=== PATIENT | male | born 1970 | race American Indian/Alaskan Native ===

== ENCOUNTER 2017-08-01 11:46 | Emergency (ER) | payer BC, OTHER ==
--- NOTE | 2017-08-01 12:08 | EDM.PDOC ---
ED HPI GENERAL MEDICAL PROBLEM - General Chief Complaint: Neck Problem Stated Complaint: [id number] FELL ON WEDNESDAY OFF LADDER Time Seen by Provider: 08/01/17 12:03 Source of Information: Reports: Patient History Limitations: Reports: No Limitations - History of Present Illness INITIAL COMMENTS - FREE TEXT/NARRATIVE: 47 yo male c/o Left side neck muscle pain and left shoulder muscle tightness after fall off ladder wednesday pm ( 2 days ago). Pt. denies LOC and request soft neck collar Onset Date: 07/30/17 Onset Time: 16:00 Duration: Day(s): Location: Reports: Neck, Upper Extremity, Left Quality: Reports: Ache Severity: Mild Improves with: Reports: Rest Worsens with: Reports: Movement Context: Reports: Trauma Associated Symptoms: Reports: No Other Symptoms - Related Data Allergies Allergy/AdvReac Type Severity Reaction Status Date / Time No Known Allergies Allergy Verified 10/13/13 17:38 Home Meds: Home Meds Gabapentin [Gabapentin] 300 mg PO QID 10/13/13 [History] Omeprazole 20 mg PO DAILY 10/13/13 [History] Zolpidem [Ambien] 10 mg PO BEDTIME 10/13/13 [History] oxyCODONE [oxyCODONE] 5 mg PO QID 10/13/13 [History] Lisinopril [Zestril] 40 mg PO DAILY 08/01/17 [History] Metoprolol Tartrate 50 mg PO DAILY 08/01/17 [History] Past Medical History HEENT History: Reports: Impaired Vision Cardiovascular History: Reports: High Cholesterol, Hypertension Gastrointestinal History: Reports: GERD Musculoskeletal History: Reports: Back Pain, Chronic Endocrine/Metabolic History: Reports: Diabetes, Type II - Infectious Disease History Infectious Disease History: Reports: Chicken Pox - Past Surgical History GI Surgical History: Reports: Hernia Repair/Other Social & Family History - Tobacco Use Second Hand Smoke Exposure: No - Alcohol Use Days Per Week of Alcohol Use: 0 - Recreational Drug Use Recreational Drug Use: No ED ROS GENERAL - Review of Systems Review Of Systems: See Below Constitutional: Reports: No Symptoms HEENT: Reports: No Symptoms Respiratory: Reports: No Symptoms Cardiovascular: Reports: No Symptoms Endocrine: Reports: No Symptoms GI/Abdominal: Reports: No Symptoms : Reports: No Symptoms Musculoskeletal: Reports: Neck Pain (left lateral side), Shoulder Pain (left ) Skin: Reports: Wound (right forehead) Neurological: Reports: No Symptoms Psychiatric: Reports: No Symptoms Hematologic/Lymphatic: Reports: No Symptoms Immunologic: Reports: No Symptoms ED EXAM, GENERAL - Physical Exam Exam: See Below Exam Limited By: No Limitations General Appearance: Alert, WD/WN, No Apparent Distress Eye Exam: Bilateral Eye: EOMI, PERRL Ears: Normal External Exam Ear Exam: Bilateral Ear: TM normal Nose: Normal Inspection, Normal Mucosa Throat/Mouth: Normal Inspection Head: Other (right forehead skin abrasion) Neck: Normal Inspection, Supple, Full Range of Motion, Tender Lateral (left) Respiratory/Chest: No Respiratory Distress, Lungs Clear Cardiovascular: Normal Peripheral Pulses, Regular Rate, Rhythm, No Edema Peripheral Pulses: 2+: Radial (L), Radial (R) Back Exam: Normal Inspection, Full Range of Motion Extremities: Normal Inspection, Normal Range of Motion, Other (muscle tightness to left shoulder and left side neck w/ movement) Neurological: Alert, Oriented, CN II-XII Intact, Normal Cognition Psychiatric: Normal Affect, Normal Mood Skin Exam: Warm, Dry, Normal Color Lymphatic: No Adenopathy Departure - Departure Time of Disposition: 12:13 Disposition: Home, Self-Care 01 Condition: Good Clinical Impression: Contusion Qualifiers: Encounter type: initial encounter Contusion area: head Contusion of head detail : unspecified part of head Qualified Code(s): S00.93XA - Contusion of unspecified part of head, initial encounter - Discharge Information Instructions: Cervical Sprain, [id number], Cervical Collar Additional Instructions: Rest WEAR SOFT CERVICAL COLLAR FOR COMFORT Apply Moist Heat to areas of pain TID X 15 mins For Pain: MOTRIN 600mg TID w/ food Continue w/ your prescribed medication ( Neurontin and Oxycodone) F/U w/ PCP
== END 2017-08-01 12:20 | disposition home or self-care (01) ==
LOC: DL.ED 11:46
DX: S00.93XA Contusion of unspecified part of head, initial encounter (principal); S00.81XA Abrasion of other part of head, initial encounter; I10 Essential (primary) hypertension; E11.9 Type 2 diabetes mellitus without complications; Z79.899 Other long term (current) drug therapy; W11.XXXA Fall on and from ladder, initial encounter
CPT/HCPCS: 99283

== ENCOUNTER 2018-12-29 07:39 | Day surgery (SDC) | payer OTHER ==
[~2018-12-29 07:39] MED LIST: Dextrose 5%-0.45% NaCl 1,000 ML IV SCH; Midazolam 1 MG/ML 2 ML SDV ONE; Sodium Chloride 0.9% 10 ML Syringe FLUSH PRN; fentaNYL 100 MCG/2 ML SDV ONE
[2018-12-29] MEDS ORDERED: fentaNYL 100 MCG/2 ML SDV IV ONE ×3 (07:40→08:39)
[2018-12-29] MEDS ORDERED: Midazolam 1 MG/ML 2 ML SDV IV ONE ×3 (07:40→08:40)
--- NOTE | 2018-12-29 13:50 | OR ---
DATE: 12/29/2018 PROCEDURE PERFORMED: Esophagogastroduodenoscopy and multiple pinch biopsies. INSTRUMENT USED: [id number] Olympus video panendoscope. PREMEDICATIONS: No oral or topical anesthesia used. Fentanyl 100 mcg intravenous, Versed 2 mg intravenous. The procedure was done under pulse oximetry, BP recording, and bus driver/monitor. INDICATION: The patient with persistent longstanding heartburn, on long-term PPI and also has known chronic hepatitis C. Esophagogastroduodenoscopy is performed for detection of any active erosive lesions, Thorpe esophagus and/or malignancy also under consideration, H. pylori status to be determined, detection of any varices, endoscopic hemostasis therapy if needed. DESCRIPTION OF PROCEDURE: The scope was passed with ease. Adequate visualization of the esophagus was made from proximal to distal areas. No upper esophageal lesions identified. No distal esophageal stricture. No uphill or downhill esophageal varices. No Paola-Baugh tear. No evidence of erosive esophagitis by Dawson criteria. No esophageal polyp or tumor mass identified. Z-line was seen at around 40 cm distal to the oral verge, configuration consistent with grade 1 by ZAP classification. No proximal gastric varices noted. Gastric fundus examination by retroflexion showed no polypoid lesions. No gastric ulcer, malignant mass, or vascular ectasia identified. Duodenal bulb showed no ulcer. Visualized second part of the duodenum was unremarkable. Multiple pinch biopsies were taken from the gastric antrum and proximal body and sent for PyloriTek test for H. pylori, and if negative in an hour, tissue is to be sent for histopathology. No bleeding was noted from any of the visualized areas at the completion of examination. IMPRESSION: Normal study. The patient tolerated the procedure well. [facility] /[id number]
== END 2018-12-29 11:18 | disposition home or self-care (01) ==
LOC: DL.ENDO 07:39
PROVIDERS: ATTEND Internal Medicine Gastroenterology
DX: K21.9 Gastro-esophageal reflux disease without esophagitis (principal); B96.81 Helicobacter pylori [H. pylori] as the cause of diseases classified elsewhere; B18.2 Chronic viral hepatitis C; I10 Essential (primary) hypertension; F41.1 Generalized anxiety disorder; Z79.899 Other long term (current) drug therapy
CPT/HCPCS: 43239; J2250; J3010; J7042

== ENCOUNTER 2020-04-09 12:21 | Emergency (ER) | payer MEDICAID, OTHER ==
[2020-04-09] MEDS ORDERED: HYDROmorphone 1 MG/ML Syringe IVPUSH ONE (12:25)
[2020-04-09] MEDS ORDERED: Sodium Chloride 0.9% 1,000 ML IV ONE (12:26)
[2020-04-09] MEDS ORDERED: Ketorolac 30 MG/ML SDV IVPUSH ONE (12:26)
[2020-04-09] MEDS ORDERED: Sodium Chloride 0.9% 10 ML Syringe FLUSH PRN (12:26)
[2020-04-09] MEDS ORDERED: Ondansetron 4 MG/2 ML SDV IV ONE (12:26)
--- NOTE | 2020-04-09 12:30 | EDM.PDOC ---
ED HPI GENERAL MEDICAL PROBLEM - General Chief Complaint: Abdominal Pain Stated Complaint: SEVERE KIDNEY PAIN Time Seen by Provider: 04/09/20 12:28 Source of Information: Reports: Patient, Old Records, RN, RN Notes Reviewed History Limitations: Reports: No Limitations - History of Present Illness INITIAL COMMENTS - FREE TEXT/NARRATIVE: Pt arrives to ER by POV with c/o severe B/L flank, and low abdominal pain that began on 04/03/20. Initially the pain was of moderate intensity and was intermittent. Today the pain returned and quickly became severe. He states he noticed some strands of clotted blood in his urine a few time over the past few days, and passed a couple of chunks that he thought might be kidney stones. Currently he is experiencing urinary urgency and frequency with dark reddish- orange urine but only passing very small amounts with each attempted void. He has nausea and vomiting associated with the severe pain. Pt states he was just COVID tested yesterday and informed of negative result this morning. Onset: Sudden Onset Date: 04/03/20 Duration: Constant (today), Intermittent, Recurring Location: Reports: Abdomen, Back Quality: Reports: Ache Severity: Severe Improves with: Reports: None Worsens with: Reports: None Associated Symptoms: Reports: No Other Symptoms Bilateral Lower Abdomen Pain Score (Numeric/FACES): 10 - Related Data Allergies Allergy/AdvReac Type Severity Reaction Status Date / Time No Known Allergies Allergy Verified 04/09/20 12:47 Home Meds: Home Meds Gabapentin 300 mg PO TID 10/13/13 [History] Zolpidem [Ambien] 5 - 10 mg PO BEDTIME 10/13/13 [History] oxyCODONE 5 mg PO QID 10/13/13 [History] Metoprolol Tartrate 50 mg PO DAILY 08/01/17 [History] Lansoprazole [Prevacid] 30 mg PO DAILY 12/28/18 [History] Sildenafil [Revatio] 50 mg PO ASDIRECTED 12/28/18 [History] atorvaSTATin [Lipitor] 40 mg PO DAILY 12/28/18 [History] Multivitamin [Multi-Day Vitamins] 1 each PO DAILY 12/29/18 [History] Past Medical History HEENT History: Reports: Impaired Vision Cardiovascular History: Reports: High Cholesterol, Hypertension Respiratory History: Reports: None Gastrointestinal History: Reports: GERD Genitourinary History: Reports: None Musculoskeletal History: Reports: Back Pain, Chronic Neurological History: Reports: None Psychiatric History: Reports: None Endocrine/Metabolic History: Reports: Diabetes, Type II Hematologic History: Reports: None Immunologic History: Reports: None Oncologic (Cancer) History: Reports: None Dermatologic History: Reports: None - Infectious Disease History Infectious Disease History: Reports: Chicken Pox - Past Surgical History Head Surgeries/Procedures: Reports: None HEENT Surgical History: Reports: Adenoidectomy, Tonsillectomy Cardiovascular Surgical History: Reports: None GI Surgical History: Reports: Colonoscopy, EGD, Hernia Repair/Other Male Surgical History: Reports: Vasectomy Social & Family History - Family History Family Medical History: Noncontributory - Caffeine Use Caffeine Use: Reports: Coffee Caffeine Use Comment: 1 pot/day - Living Situation & Occupation Living situation: Reports: , with Spouse Occupation: Employed ED ROS GENERAL - Review of Systems Review Of Systems: Comprehensive ROS is negative, except as noted in HPI. ED EXAM, RENAL/ - Physical Exam Exam: See Below Exam Limited By: No Limitations General Appearance: Alert, WD/WN, Moderate Distress (due to pain) Eye Exam: Bilateral Eye: Normal Inspection Throat/Mouth: Normal Voice, No Airway Compromise Head: Atraumatic, Normocephalic Neck: Normal Inspection, Full Range of Motion Respiratory/Chest: No Respiratory Distress, Lungs Clear, Normal Breath Sounds, No Accessory Muscle Use, Chest Non-Tender Cardiovascular: Regular Rate, Rhythm, Tachycardia GI/Abdominal: Normal Bowel Sounds, Soft, Non-Tender, No Distention, Pelvis Stable. No: No Abnormal Bruit, Guarding, Rigid, Rebound (Male) Exam: Deferred Rectal (Males) Exam: Deferred Back Exam: Normal Inspection, Full Range of Motion. No: CVA Tenderness (L), CVA Tenderness (R) Extremities: Normal Inspection Neurological: Alert, Oriented, No Motor/Sensory Deficits Psychiatric: Normal Affect, Normal Mood Skin Exam: Warm, Dry, Intact, Normal Color, No Rash Course - Vital Signs Last Recorded V/S: Last Vital Signs Temp 97.8 F 04/09/20 12:40 Pulse 77 04/09/20 12:40 Resp 20 04/09/20 12:40 BP 129/67 04/09/20 12:40 Pulse Ox 100 04/09/20 12:40 - Orders/Labs/Meds Orders: Active Orders 24 hr Category Date Time Status Peripheral IV Care [RC] . DIRECTED Care 04/09/20 12:27 Active CULTURE URINE [RM] Stat Lab 04/09/20 12:30 Received Sodium Chloride 0.9% [Saline Flush] Med 04/09/20 12:26 Active 10 ml FLUSH ASDIRECTED PRN Peripheral IV Insertion Adult [OM.PC] Stat Oth 04/09/20 12:26 Ordered Medication Orders Sodium Chloride (Saline Flush) 10 ml FLUSH ASDIRECTED PRN PRN Reason: Keep Vein Open Last Admin: 04/09/20 12:38 Dose: 10 ml Documented by: NIDIA Labs: Laboratory Tests 04/09/20 04/09/20 04/09/20 Range/Units 12:30 13:06 13:06 WBC 16.0 H (5.0-10.0) 10^3/uL RBC 5.04 (4.6-6.2) 10^6/uL Hgb 15.7 (14.0-18.0) g/dL Hct 44.6 (40.0-54.0) % MCV 88.5 (80-100) fL MCH 31.2 (27.0-34.0) pg MCHC 35.2 H (33.0-35.0) g/dL Plt Count 159 (150-450) 10^3/uL Neut % (Auto) 81.1 H (42.2-75.2) % Lymph % (Auto) 7.2 L (20.5-50.1) % Slope % (Auto) 11.4 H (2-8) % Eos % (Auto) 0.1 L (1.0-3.0) % Baso % (Auto) 0.2 (0.0-1.0) % Sodium 138 (136-145) mmol/L Potassium 4.3 (3.5-5.1) mmol/L Chloride 101 (98-107) mmol/L Carbon Dioxide 29 (21-32) mmol/L Anion Gap 12.3 (7-13) mEq/L BUN 11 (7-18) mg/dL Creatinine 1.06 (0.70-1.30) mg/dL Est Cr Clr Drug Dosing 91.51 mL/min Estimated GFR (MDRD) > 60 BUN/Creatinine Ratio 10.4 (No establ ref range) Glucose 133 H (74-99) mg/dL Calcium 8.6 (8.5-10.1) mg/dL Total Bilirubin 1.2 H (0.2-1.0) mg/dL AST 8 L (15-37) U/L ALT 20 (16-63) U/L Alkaline Phosphatase 87 (46-116) U/L Total Protein 7.3 (6.4-8.2) g/dL Albumin 3.5 (3.4-5.0) g/dL Globulin 3.8 Albumin/Globulin Ratio 0.9 Amylase 27 (25-115) U/L Lipase 69 L (73-393) U/L Urine Color Dark yellow (YELLOW) Urine Appearance Turbid (CLEAR) Urine pH 6.5 (5.0-9.0) Ur Specific [place] 1.025 (1.005-1.030) Urine Protein >=300 H (NEGATIVE) Urine Glucose (UA) Negative (NEGATIVE) Urine Ketones Trace H (NEGATIVE) Urine Occult Blood Large H (NEGATIVE) Urine Nitrite Positive H (NEGATIVE) Urine Bilirubin Small H (NEGATIVE) Urine Urobilinogen 2.0 H (0.2-1.0) mg/dL Ur Leukocyte Esterase Large H (NEGATIVE) Urine RBC >100 H /HPF Urine WBC >100 H (0-5/HPF) /HPF Ur Epithelial Cells Few (NOT SEEN) /HPF Amorphous Sediment Many (NOT SEEN) /HPF Urine Bacteria Many H (0-FEW/HPF) /HPF Urine Mucus Many H (NOT SEEN) /LPF Meds: Medications Generic Name Dose Route Start Last Admin Trade Name Freq PRN Reason Stop Dose Admin Sodium Chloride 10 ml 04/09/20 12:26 04/09/20 12:38 Saline Flush FLUSH 10 ml ASDIRECTED PRN Administration Keep Vein Open Discontinued Medications Generic Name Dose Route Start Last Admin Trade Name Freq PRN Reason Stop Dose Admin Hydromorphone HCl 1 mg 04/09/20 12:25 04/09/20 12:38 Dilaudid IVPUSH 04/09/20 12:26 1 mg ONETIME ONE Administration Sodium Chloride 1,000 mls @ 999 mls/hr 04/09/20 12:26 04/09/20 12:38 Normal Saline IV 04/09/20 13:26 999 mls/hr .BOLUS ONE Administration Ceftriaxone Sodium 2 gm/ 100 mls @ 200 mls/hr 04/09/20 12:46 04/09/20 13:02 Sodium Chloride IV 04/09/20 13:15 200 mls/hr ONETIME ONE Administration Ketorolac Tromethamine 30 mg 04/09/20 12:26 04/09/20 12:37 Toradol IVPUSH 04/09/20 12:27 30 mg ONETIME ONE Administration Ondansetron HCl 4 mg 04/09/20 12:26 04/09/20 12:38 Zofran IV 04/09/20 12:27 4 mg ONETIME ONE Administration Tamsulosin HCl 0.4 mg 04/09/20 12:45 04/09/20 13:00 Flomax PO 04/09/20 12:46 0.4 mg ONETIME ONE Administration - Radiology Interpretation Free Text/Narrative:: CT Abd/Pelvis: B/L nephrolithiasis, no obstructing urinary calculi, thickened bladder wall with urachal cyst or diverticulum, see Rad. report. - Re-Assessments/Exams Free Text/Narrative Re-Assessment/Exam: I consulted Dr. High, urologist via [facility]. He reviewed the case and CT images, and advises to treat the pt with antibiotics and he will see the pt in urology clinic in about 3 weeks. Departure - Departure Time of Disposition: 14:35 Disposition: Home, Self-Care 01 Condition: Good Clinical Impression: Kidney stones, Bladder diverticulum Urinary tract infection Qualifiers: Urinary tract infection type: acute pyelonephritis Qualified Code(s): N10 - Acute pyelonephritis - Discharge Information *PRESCRIPTION DRUG MONITORING PROGRAM REVIEWED*: Not Applicable *COPY OF PRESCRIPTION DRUG MONITORING REPORT IN PATIENT NADYA: Not Applicable Instructions: Kidney Stones, [id number], Renal Colic, [id number], Urinary Tract Infection, Adult Forms: ED Department Discharge Additional Instructions: Rx: Cipro 500mg Follow up in clinic in 3 to 4 days for urine recheck and referral to [facility] Urology, Dr. High has agreed to see you for consultation in approximately 3 weeks. Sepsis Event Note (ED) - Focused Exam Vital Signs: Vital Signs Temp Pulse Resp BP Pulse Ox 04/09/20 12:40 97.8 F 77 20 129/67 100 - My Orders Last 24 Hours: My Active Orders 04/09/20 12:26 Sodium Chloride 0.9% [Saline Flush] 10 ml FLUSH ASDIRECTED PRN Peripheral IV Insertion Adult [OM.PC] Stat 04/09/20 12:27 Peripheral IV Care [RC] . DIRECTED 04/09/20 12:30 CULTURE URINE [RM] Stat - Assessment/Plan Last 24 Hours: My Active Orders 04/09/20 12:26 Sodium Chloride 0.9% [Saline Flush] 10 ml FLUSH ASDIRECTED PRN Peripheral IV Insertion Adult [OM.PC] Stat 04/09/20 12:27 Peripheral IV Care [RC] . DIRECTED 04/09/20 12:30 CULTURE URINE [RM] Stat
[2020-04-09] MEDS ORDERED: Tamsulosin 0.4 MG Cap.ER PO ONE (12:45)
[2020-04-09] MEDS ORDERED: cefTRIAXone 2 GM in Sodium Chloride 0.9% 100 ML IV ONE (12:46)
--- NOTE | 2020-04-09 13:14 | CT ---
EXAMINATION: Abdomen Pelvis wo Cont SEX: Male AGE: 50 years CLINICAL HISTORY: 50-year-old hypertensive male with HEMATURIA and (bilateral flank/lower abdominal)PAIN. Scan technique: Volume acquisition of data emergency unenhanced CT scan of the abdomen/pelvis (kidneys/ureters/bladder renal stone study) obtained with patient lying supine on the Siemens multislice scanner [place], [place]. All data archived in the PAC system for storage, reformatting axial/sagittal/coronal planes and study. Interpretation: 1. Gallbladder (RUQ) homogeneously dense and suspicious for noncalcified intraluminal gall stones. Solitary hepatic cyst. Liver, stomach, spleen, pancreas and adrenal glands anatomically correct and otherwise unremarkable. No cystic or solid renal cortical mass lesion (unenhanced exam). 2. NEPHROLITHIASIS. No current signs of pyelocaliectasis or obstructive uropathy. A. Punctate Upper pole calyceal (x2), one midpole, and 2 lower pole calyceal calcifications, right kidney. B. Isolated tiny punctate upper mid pole calyceal calcification, left kidney. 3. Probable midline urachal cyst with central calcification located anteriorly, midline pelvis. 4. Incompletely distended urinary bladder with thickened wall and no dependent intraluminal urinary bladder stones. Inhomogeneously dense prostate gland symmetric normal seminal vesicles. 5. SIGMOID DIVERTICULOSIS without associated signs of inflammation. No pelvic or abdominal mass lesion, mesenteric or retroperitoneal lymphadenopathy, signs of mechanical bowel obstruction, ascites or free intraperitoneal air. Normal pericecal appendix anteriorly RLQ. Terminal ileum unremarkable. 6. Calcifications outline normal caliber aortoiliac vessels. No aneurysm or dissection. 7. Chronic lower thoracic T11-12 and lower lumbar L5-S1 disc disease. Hypertrophic spondylosis. CONCLUSION: Bilateral nephrolithiasis (no current signs of obstructive uropathy). Sigmoid diverticulosis. Probable urachal cyst.
[2020-04-09 13:31] LABS: ANION GAP 12.3 mEq/L (7-13); CHLORIDE,CL 101 mmol/L (98-107); SODIUM,NA 138 mmol/L (136-145)
== END 2020-04-09 14:53 | disposition home or self-care (01) ==
LOC: DL.ED 12:21
DX: N20.0 Calculus of kidney (principal); N32.3 Diverticulum of bladder; N10 Acute pyelonephritis; E78.00 Pure hypercholesterolemia, unspecified; I10 Essential (primary) hypertension; K21.9 Gastro-esophageal reflux disease without esophagitis; E11.9 Type 2 diabetes mellitus without complications; Z79.899 Other long term (current) drug therapy; Z90.09 Acquired absence of other part of head and neck; Z98.52 Vasectomy status
CPT/HCPCS: 36415; 74176; 80053; 81001; 82150; 83690; 85025; 87086; 96365; 96375; 99284; A9270; J0696; J1170; J1885; J2405; J7030; J7050; 87088; 87186; 99283

== ENCOUNTER 2021-05-27 17:38 | Emergency (ER) | payer BC ==
--- NOTE | 2021-05-27 18:11 | CR ---
PROCEDURE INFORMATION: Exam: XR Right Foot Exam date and time: 05/27/2021 5:48 PM Age: 51 years old Clinical indication: Pain; Foot; Right TECHNIQUE: Imaging protocol: XR Right foot. Views: 3 or more views. Total images: 3 COMPARISON: No relevant prior studies available. FINDINGS: Bones/joints: there is an acute nondisplaced fracture through the base of the right 3rd proximal phalanx. Suggestion of some probable chronic changes about the right ankle incompletely evaluated. Soft tissues: Normal. IMPRESSION: Acute nondisplaced fracture through the base of the right 3rd proximal phalanx.
[2021-05-27] MEDS ORDERED: Metoprolol Tartrate 50 MG Tab PO ONE (19:14)
--- NOTE | 2021-05-27 19:19 | EDM.PDOC ---
ED HPI GENERAL MEDICAL PROBLEM - General Chief Complaint: Upper Extremity Injury/Pain Stated Complaint: POSSIBLE BROKEN FOOT/TOE Time Seen by Provider: 05/27/21 19:05 Source of Information: Reports: Patient History Limitations: Reports: No Limitations - History of Present Illness INITIAL COMMENTS - FREE TEXT/NARRATIVE: ED with c/o right forefoot pain, reports stubbed toe/ foot on brick last night, pain with weight bearing. bruising base of right 3rd toe. BP elevated. Admits has not been taking home medications recently. Right Toe-Long Pain Score (Numeric/FACES): 4 - Related Data Allergies Allergy/AdvReac Type Severity Reaction Status Date / Time No Known Allergies Allergy Verified 04/09/20 12:47 Home Meds: Home Meds Gabapentin 300 mg PO TID 10/13/13 [History] Zolpidem [Ambien] 5 - 10 mg PO BEDTIME 10/13/13 [History] oxyCODONE 5 mg PO QID 10/13/13 [History] Metoprolol Tartrate 50 mg PO DAILY 08/01/17 [History] Lansoprazole [Prevacid] 30 mg PO DAILY 12/28/18 [History] Sildenafil [Revatio] 50 mg PO ASDIRECTED 12/28/18 [History] atorvaSTATin [Lipitor] 40 mg PO DAILY 12/28/18 [History] Multivitamin [Multi-Day Vitamins] 1 each PO DAILY 12/29/18 [History] Past Medical History HEENT History: Reports: Impaired Vision Cardiovascular History: Reports: High Cholesterol, Hypertension Respiratory History: Reports: None Gastrointestinal History: Reports: GERD Genitourinary History: Reports: None Musculoskeletal History: Reports: Back Pain, Chronic Neurological History: Reports: None Psychiatric History: Reports: None Endocrine/Metabolic History: Reports: Diabetes, Type II Hematologic History: Reports: None Immunologic History: Reports: None Oncologic (Cancer) History: Reports: None Dermatologic History: Reports: None - Infectious Disease History Infectious Disease History: Reports: Chicken Pox - Past Surgical History Head Surgeries/Procedures: Reports: None HEENT Surgical History: Reports: Adenoidectomy, Tonsillectomy Cardiovascular Surgical History: Reports: None GI Surgical History: Reports: Colonoscopy, EGD, Hernia Repair/Other Male Surgical History: Reports: Vasectomy Social & Family History - Family History Family Medical History: No Pertinent Family History - Tobacco Use Tobacco Use Status *Q: Never Tobacco User Second Hand Smoke Exposure: No - Caffeine Use Caffeine Use: Reports: Coffee Caffeine Use Comment: 1 pot/day - Recreational Drug Use Recreational Drug Use: No - Living Situation & Occupation Living situation: Reports: , with Spouse Occupation: Employed Review of Systems - Review of Systems Review Of Systems: Comprehensive ROS is negative, except as noted in HPI. ED EXAM, GENERAL - Physical Exam Exam: See Below Exam Limited By: No Limitations General Appearance: Alert, Mild Distress Eye Exam: Bilateral Eye: EOMI Ears: Normal External Exam, Hearing Grossly Normal Nose: Normal Inspection Throat/Mouth: Normal Inspection Head: Atraumatic, Normocephalic Neck: Normal Inspection Respiratory/Chest: Lungs Clear, Normal Breath Sounds Cardiovascular: Regular Rate, Rhythm Extremities: Joint Swelling (base right 3rd toe), Limited Range of Motion (3rd toe) Neurological: Alert, Oriented, Normal Cognition. No: Normal Gait Psychiatric: Normal Affect, Normal Mood Skin Exam: Warm, Dry, Intact, Ecchymosis (base 3rd 4th toes, mild swelling no gross deformity). No: Wound/Incision Course - Vital Signs Last Recorded V/S: Last Vital Signs Temp 98.8 F 05/27/21 18:56 Pulse 102 H 05/27/21 18:56 Resp 16 05/27/21 18:56 BP 175/111 H 05/27/21 18:56 Pulse Ox 99 05/27/21 18:56 - Orders/Labs/Meds Orders: Active Orders 24 hr Category Date Time Status DME for Discharge [COMM] Stat Oth 05/27/21 19:10 Ordered Meds: Medications Discontinued Medications Generic Name Dose Route Start Last Admin Trade Name Isaisaq PRN Reason Stop Dose Admin Metoprolol Tartrate 50 mg 05/27/21 19:14 Metoprolol Tartrate 50 Mg Tab PO 05/27/21 19:15 ONETIME ONE Departure - Departure Time of Disposition: 19:35 Disposition: Home, Self-Care 01 Condition: Good Clinical Impression: Fracture, phalanx, foot Qualifiers: Encounter type: initial encounter Toe: lesser toe Fracture type: closed Phalanx: proximal Fracture alignment: nondisplaced Laterality: right Qualified Code(s): S92.514A - Nondisplaced fracture of proximal phalanx of right lesser toe(s), initial encounter for closed fracture Hypertension Qualifiers: Hypertension type: unspecified Qualified Code(s): I10 - Essential (primary) hypertension - Discharge Information *PRESCRIPTION DRUG MONITORING PROGRAM REVIEWED*: No *COPY OF PRESCRIPTION DRUG MONITORING REPORT IN PATIENT NADYA: No Instructions: Toe Fracture, [id number] Forms: ED Department Discharge Additional Instructions: alternate tylenol and ibuprofen every 4 hours as needed for discomfort ice elevate minimal weight bearing as tolerated clinic follow up 1-2 weeks crutches/ walking boot take blood pressure medication as prescribed by primary care provider recheck blood pressure in clinic Sepsis Event Note (ED) - Focused Exam Vital Signs: Vital Signs Temp Pulse Resp BP Pulse Ox 05/27/21 18:56 98.8 F 102 H 16 175/111 H 99 - My Orders Last 24 Hours: My Active Orders 05/27/21 19:10 DME for Discharge [COMM] Stat - Assessment/Plan Last 24 Hours: My Active Orders 05/27/21 19:10 DME for Discharge [COMM] Stat
== END 2021-05-27 19:53 | disposition home or self-care (01) ==
LOC: DL.ED 17:38
DX: S92.514A Nondisplaced fracture of proximal phalanx of right lesser toe(s), initial encounter for closed fracture (principal); I10 Essential (primary) hypertension; E78.00 Pure hypercholesterolemia, unspecified; K21.9 Gastro-esophageal reflux disease without esophagitis; E11.9 Type 2 diabetes mellitus without complications; Z79.899 Other long term (current) drug therapy; W22.09XA Striking against other stationary object, initial encounter
CPT/HCPCS: 73630; 99283; A9270

== ENCOUNTER 2021-07-18 08:42 | Inpatient (IN) | payer BC ==
[2021-07-18 09:30] LABS: PTT,PARTIAL THROMBOPLSTIN TIME 25.5 SEC (22.0-34.0)
[2021-07-18 09:35] LABS: ANION GAP 14.2 mEq/L (7-13); CHLORIDE,CL 99 mmol/L (98-107); SODIUM,NA 134 mmol/L (136-145)
[2021-07-18] MEDS ORDERED: Codeine/Promethazine 10-6.25 MG/5 ML Syrup 5 ML UD Cup PO ONE (09:49)
[2021-07-18] MEDS ORDERED: Sodium Chloride 0.9% 1,000 ML IV ONE (09:49)
[2021-07-18 09:53] LABS: CORONAVIRUS COVID-19 NAA NEGATIVE (NEGATIVE)
[2021-07-18] MEDS: Sodium Chloride 0.9% 10 ML Syringe FLUSH PRN (09:55)
[2021-07-18] MEDS ORDERED: Ondansetron 4 MG/2 ML SDV IV ONE (10:11)
[2021-07-18] MEDS ORDERED: HYDROmorphone 1 MG/ML Syringe IVPUSH ONE ×2 (10:11→13:43)
[2021-07-18] MEDS ORDERED: Iopamidol 755 Mg/ML 100 ML Bottle IVPUSH ONE (10:30)
[2021-07-18] MEDS ORDERED: Heparin Sodium 5,000 Units/ML Vial IVPUSH ONE ×3 (12:02→19:30)
[2021-07-18] MEDS: Heparin Sodium/0.45% NaCl 25,000 UNITS/500 ML BAG IV SCH (12:21)
[2021-07-18] MEDS ORDERED: Potassium Chloride 10 MEQ Tab.ER PO ONE (15:13)
[2021-07-18] MEDS ORDERED: fentaNYL 100 MCG/2 ML SDV IVPUSH PRN (15:14)
[2021-07-18] MEDS ORDERED: Ondansetron 4 MG/2 ML SDV IVPUSH PRN (15:15)
[2021-07-18] MEDS ORDERED: Albuterol 0.083% 2.5 MG/3 ML Neb Soln NEB PRN (15:15)
[2021-07-18] MEDS ORDERED: Acetaminophen 325 MG Tab PO PRN (15:15)
[2021-07-18] MEDS ORDERED: fentaNYL 100 MCG/2 ML SDV IV PRN (15:26)
[2021-07-18] MEDS: oxyCODONE 5 MG Tab PO PRN (19:35)
[2021-07-18] MEDS: NS + KCl 20mEq/L 1,000 ML IV SCH (19:38)
[2021-07-18] MEDS: fentaNYL 100 MCG/2 ML SDV IVPUSH PRN (19:54)
[2021-07-18] MEDS: Gabapentin 300 MG Cap PO SCH (20:43)
[2021-07-18] MEDS: Zolpidem 5 MG Tab PO PRN (22:18)
[2021-07-19] MEDS ORDERED: Heparin Sodium 5,000 Units/ML Vial IVPUSH ONE ×2 (00:35→08:08)
[2021-07-19] MEDS: NS + KCl 20mEq/L 1,000 ML IV SCH ×3 (04:01→20:25)
[2021-07-19 06:23] LABS: ANION GAP 14.9 mEq/L (7-13); CHLORIDE,CL 104 mmol/L (98-107); SODIUM,NA 140 mmol/L (136-145)
[2021-07-19] MEDS: Heparin Sodium/0.45% NaCl 25,000 UNITS/500 ML BAG IV SCH (07:33)
[2021-07-19] MEDS: Metoprolol Succinate 50 MG Tab.ER PO SCH (08:09)
[2021-07-19] MEDS: Gabapentin 300 MG Cap PO SCH ×3 (08:09→20:21)
[2021-07-19] MEDS: oxyCODONE 5 MG Tab PO PRN ×2 (08:10→20:52)
[2021-07-19] MEDS: Apixaban 5 MG Tab PO SCH ×2 (09:56→20:21)
[2021-07-19] MEDS: fentaNYL 100 MCG/2 ML SDV IVPUSH PRN (10:02)
[2021-07-19] MEDS ORDERED: Calcium Carbonate 500 MG Tab.Chew PO PRN (14:12)
[2021-07-19] MEDS: Pantoprazole 40 MG Tab.CR PO SCH (14:37)
[2021-07-19] MEDS: Sodium Chloride 0.9% 10 ML Syringe FLUSH PRN (20:28)
[2021-07-19] MEDS: Zolpidem 5 MG Tab PO PRN (22:25)
[2021-07-20] MEDS: fentaNYL 100 MCG/2 ML SDV IVPUSH PRN (03:38)
[2021-07-20] MEDS: NS + KCl 20mEq/L 1,000 ML IV SCH ×2 (04:14→13:14)
[2021-07-20] MEDS: Metoprolol Succinate 50 MG Tab.ER PO SCH (09:34)
[2021-07-20] MEDS: Pantoprazole 40 MG Tab.CR PO SCH (09:34)
[2021-07-20] MEDS: Apixaban 5 MG Tab PO SCH (09:34)
[2021-07-20] MEDS: Gabapentin 300 MG Cap PO SCH (09:34)
[2021-07-20 12:35] LABS: ANION GAP 15.1 mEq/L (7-13); CHLORIDE,CL 106 mmol/L (98-107); SODIUM,NA 141 mmol/L (136-145)
[2021-07-20] MEDS ORDERED: guaiFENesin 100 MG/5 ML Soln 5 ML UD Cup PO SCH (14:00)
== END 2021-07-20 14:50 | disposition home or self-care (01) | DRG 134 ==
LOC: DL.ED 08:42 → DL.MS 13:46 → DL.ED 14:15
PROVIDERS: ADMIT Internal Medicine; ATTEND Internal Medicine
DX: I26.99 Other pulmonary embolism without acute cor pulmonale (principal); I82.210 Acute embolism and thrombosis of superior vena cava; E87.6 Hypokalemia; E87.1 Hypo-osmolality and hyponatremia; I10 Essential (primary) hypertension; E78.5 Hyperlipidemia, unspecified; K21.9 Gastro-esophageal reflux disease without esophagitis; E80.6 Other disorders of bilirubin metabolism; K82.8 Other specified diseases of gallbladder; B34.9 Viral infection, unspecified; Z20.822 Contact with and (suspected) exposure to COVID-19; H54.7 Unspecified visual loss; E78.00 Pure hypercholesterolemia, unspecified; E11.9 Type 2 diabetes mellitus without complications; K80.50 Calculus of bile duct without cholangitis or cholecystitis without obstruction; Z98.890 Other specified postprocedural states; Z79.899 Other long term (current) drug therapy; Z28.82 Immunization not carried out because of caregiver refusal
CPT/HCPCS: 0240U; 36415; 71260; 74177; 76705; 80048; 80053; 80076; 81001; 82150; 82550; 82728; 83605; 83690; 84484; 85025; 85379; 85610; 85730; 86140; 87040; 96365; 96375; 99221; 99232; 99238; 99285; 99285-25; A9270-GY; J1170; J1644; J2405; J3010; J3480; J7030; Q9967